=== PATIENT | male | born 1955 | race Caucasian/White ===

== ENCOUNTER 2021-06-29 06:34 | Day surgery (SDC) | payer OTHER ==
[2021-06-29 07:14] VITALS: BP 161/72; TEMP 97.3
[2021-06-29] MEDS ORDERED: Heparin 10,000 UNITS/ 10 ML VIAL ONE (07:20)
[2021-06-29] MEDS ORDERED: Nitroglycerin 50 MG/250 ML BOT 250 ML ONE (07:20)
[2021-06-29] MEDS ORDERED: Lidocaine 1% (PF) 30 ML VIAL ONE (07:20)
[2021-06-29] MEDS ORDERED: Bivalirudin 250 MG VIAL ONE (07:21)
[2021-06-29] MEDS ORDERED: Adenosine 6 MG/2 ML VIAL ONE (07:21)
[2021-06-29] MEDS ORDERED: Verapamil 5 MG/2 ML VIAL ONE (07:21)
[2021-06-29] MEDS ORDERED: Lidocaine 1% MPF 2 ML VIAL ONE (07:30)
[2021-06-29] MEDS ORDERED: Ondansetron PF 4 MG/2 ML Vial ONE (07:32)
[2021-06-29] MEDS ORDERED: Atropine Sulfate 0.4 mg/1 ml Vial ONE (07:32)
[2021-06-29] MEDS ORDERED: Fentanyl 100 MCG/2 ML VIAL ONE (07:45)
[2021-06-29] MEDS ORDERED: Midazolam HCl 2 mg/2 ml Vial ONE ×2 (07:45→08:18)
[2021-06-29] MEDS ORDERED: Iopamidol 300 61% 100 ML VIAL FS ONE (09:22)
== END 2021-06-29 13:46 | disposition home or self-care (01) ==
LOC: CSHCCL 06:34 → CSHERS 07:38 → EDSTATUS 10:30 → CSHCCL 13:46
PROVIDERS: ATTEND Specialist
DX: I25.10 Atherosclerotic heart disease of native coronary artery without angina pectoris (principal); E78.5 Hyperlipidemia, unspecified; I10 Essential (primary) hypertension; G47.30 Sleep apnea, unspecified; E11.9 Type 2 diabetes mellitus without complications; F31.9 Bipolar disorder, unspecified; E66.9 Obesity, unspecified; Z87.891 Personal history of nicotine dependence; Z79.899 Other long term (current) drug therapy; Z79.4 Long term (current) use of insulin
CPT/HCPCS: 93458; 99152; C1769; C1894; J0153; J0461; J0583; J1644; J2001; J2250; J2405; J3010; Q9967